=== PATIENT | male | born 1990 | race Caucasian/White ===

== ENCOUNTER 2020-03-02 02:39 | Emergency (ER) | payer OTHER, SELFPAY ==
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
[2020-03-02 02:49] VITALS: BP 118/72; PULSE 62; RESP 18; TEMP 36.8; O2SAT 100
[2020-03-02 03:05] LABS: Basophils Percent Auto 0.5 % (0.2-1.2); Eosinophils Absolute Auto 0.1 K/mm3 (0-0.3); Eosinophils Percent Auto 0.6 % (0-4.4); Hematocrit 44.4 % (42.0-52.0); Hemoglobin 14.7 g/dL (14.0-18.0); Immature Granulocyte Absolute 0.04 K/mm3 (0.00-0.031); Immature Granulocyte Percent A 0.5 % (0-0.5); Lymphocytes Absolute Auto 2.18 K/mm3 (0.9-3.2); Lymphocytes Percent Auto 26.8 % (18.3-44.2); Mean Corpuscular HGB Conc 33.1 g/dl (32-36); Mean Corpuscular Hemoglobin 31.7 pg (26-34); Mean Corpuscular Volume 95.7 fl (80-100); Monocytes Absolute Auto 0.4 K/mm3 (0.1-0.6); Monocytes Percent Auto 4.8 % (2.6-8.5); Neutrophils Absolute Auto 5.4 K/mm3 (1.3-6.7); Neutrophils Percent Auto 66.8 % (45.5-73.1); Platelet Count Result 239 k/mm3 (150-375); Red Blood Count 4.64 M/mm3 (4.6-6.20); Red Cell Distribution Width 12.9 % (11.5-14.5); White Blood Count 8.1 K/mm3 (4.5-10.0)
[2020-03-02 03:11] LABS: Add Urine Microscopic? YES; Appearance Urine Clear (Clear); Bilirubin Urine 1+ (Negative); Blood Urine Negative (Negative); Color Urine Yellow (Yellow); Glucose Urine UA Negative (Negative); Ketones Urine 1+ mg/dL (Negative); Leukocyte Esterase Ur 2+ LEU/UL (Negative); Mucus Urine Heavy /lpf; Nitrate Urine Negative (Negative); Protein Urine 1+ mg/dL (Negative); WBC Urine >75 /hpf
[2020-03-02 03:13] LABS: Specific Grav Ur 1.031 (1.001-1.035)
[2020-03-02 03:14] LABS: Alanine Aminotransferase 24 U/L (4-50); Albumin Level 4.5 g/dL (3.5-5.1); Alkaline Phosphatase 109 U/L (38-126); Anion Gap 9 mmol/L (8-16); Aspartate Amino Transferase 21 U/L (17-59); Blood Urea Nitrogen 10 mg/dL (9-20); Calcium 9.1 mg/dL (8.4-10.2); Carbon Dioxide 27 mmol/L (22-30); Chloride 104 mmol/L (98-107); Estimated CRCL calculation 129 ml/min; Estimated Glomerular Filt Rate > 60; Glucose 95 mg/dL (75-110); Sodium 140 mmol/L (137-145)
[2020-03-02 03:16] LABS: Ethanol < 10 mg/dL (<10)
[2020-03-02 03:20] LABS: Amphetamine Screen Urine Negative (Negative); Barbiturate Screen Urine Negative (Negative); Benzodiazepines Screen Urine Negative (Negative); Cannabinoid Screen Urine Positive (Negative); Cocaine Screen Urine Negative (Negative); Methadone Screen Urine Negative (Negative); Opiate Screen Urine Negative (Negative); Phencyclidine Screen Urine Negative (Negative)
[2020-03-02] MEDS: cefTRIAXone 250 MG VIAL IM (03:35)
[2020-03-02] MEDS: AZITHROMYCIN 250 MG TABLET 1000 MG PO (03:35)
[2020-03-02 03:45] LABS: Thyroid Stimulating Hormone 0.787 uIU/mL (0.465-4.680)
--- NOTE | 2020-03-02 04:32 | PC.NURSE ---
crisis called, phuc answered, will dispatch care personel to eval pt.
--- NOTE | 2020-03-02 04:59 | PC.NURSE ---
person from crisis here, talked with Dr. nair. veronika puckett
--- NOTE | 2020-03-02 05:58 | PC.NURSE ---
pts chart faxed to [facility] for placement.
--- NOTE | 2020-03-02 11:13 | PC.NURSE ---
requested paperwork faxed to [facility], and [facility]
[2020-03-02 11:17] VITALS: BP 132/60; PULSE 76; RESP 20; O2SAT 99
--- NOTE | 2020-03-02 12:10 | PC.NURSE ---
requested paperwork faxed to [facility]
[2020-03-02 20:37] VITALS: BP 134/60; PULSE 78; RESP 18; O2SAT 99
--- NOTE | 2020-03-02 20:37 | PC.NURSE ---
trent sanitation worker cleaning machinery here to reassess patient. patient has been declined by all facilities contacted
--- NOTE | 2020-03-02 21:02 | PC.NURSE ---
Lili from Crisis here, re evaluating to patient. She reports the patient wishes to be hospitalized
--- NOTE | 2020-03-02 21:22 | PC.NURSE ---
Lili called requesting a COVID swab to be collected. Dr. Rodriguez made aware. [facility] for COVID Swab.
--- NOTE | 2020-03-02 21:25 | PC.NURSE ---
Per heating and cooling techniciancatina Quiroz, pt cursing, hitting wall, wanting a nicotine patch.
--- NOTE | 2020-03-02 21:28 | PC.NURSE ---
Security at bedside, pt threatening to leave. Dr. Rodriguez made aware of pt request for nicotine patch. He states he will place order in. Pt made aware.
--- NOTE | 2020-03-02 21:52 | PC.NURSE ---
Security brought me an incident report . The guard reports the pt states he has tried to kill his self several times by od, train & other ways , also that he couldn't wait until the first of the month he was going to buy a gun and kill his self. This report was placed on the chart. Sitter at bedside, security talking with patient.
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
[2020-03-03] MEDS: NICOTINE (*PBKC) 14 MG PATCH 1 PATCH TRANSDERM (01:20)
[2020-03-03] MEDS: LORazepam 1 MG TABLET 2 MG PO (01:29)
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
[2020-03-03 02:04] VITALS: BP 126/79; PULSE 84; RESP 16; TEMP 36.6; O2SAT 100
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
--- NOTE | 2020-03-03 02:30 | PC.NURSE ---
Addendum entered by SERENA Mcdowell 03/03/20 02:51: Asked pt to watch his language, he refused after I told him other pt in the mann could hear him and stated he did not give a fuck. Original Note: Asked pt to watch his language, he refused after I told him other pt in the mann could hear him and stated he did not give a fuck.
--- NOTE | 2020-03-03 08:37 | PC.NURSE ---
Pt father Bao Gomez called for an update. Wishes to be called when pt gets placed. Phone number is [phone].
--- NOTE | 2020-03-03 08:43 | PC.NURSE ---
Lili from Crisis contacted at this time. Informed me that pt has been denied by 5 different hospitals. Lili states she will continue to look for placement.
[2020-03-03 12:19] VITALS: BP 122/72; PULSE 82; RESP 18; TEMP 36.6; O2SAT 100
--- NOTE | 2020-03-03 12:19 | PC.NURSE ---
Oni from [facility] called for nurse to nurse report. Oni states intake will be calling back with potentially accepting
[2020-03-03] MEDS: SERTRALINE HCL 50 MG TABLET 100 MG PO (13:35)
[2020-03-03] MEDS: LORazepam 1 MG TABLET PO ×2 (13:35→18:56)
[2020-03-03] MEDS: NICOTINE (*PBKC) 21 MG PATCH 1 PATCH TRANSDERM (13:53)
[2020-03-03 14:00] LABS: SARS-CoV-2 RNA PCR Negative
--- NOTE | 2020-03-03 14:40 | PC.NURSE ---
spoke with Jessica @ [phone] [facility]. stated they would hold bed-call with schedule time of departure. If bumped by transport service call [facility] with each updated scheduled
--- NOTE | 2020-03-03 19:20 | PC.NURSE ---
report received at this time. pt resting in room with no complaints. updated on poc and awaiting transfer, verbalizes understanding. sitter remains at bedside. will continue to monitor pt for baseline status changes.
--- NOTE | 2020-03-03 20:13 | PCDIET ---
Spoke with [facility]. No trip plan or ETA for transport to [place], yet.
--- NOTE | 2020-03-03 20:29 | PC.NURSE ---
[facility] called and the ETA for a dedicated crew to transport patient to [place] is 03/04/2020 at 2:30 and 3:00.
--- NOTE | 2020-03-03 20:39 | PC.NURSE ---
Informed [facility] with [facility] transport ETA to pickup patient from this ED
[2020-03-03 20:49] VITALS: BP 127/67; PULSE 73; RESP 18; TEMP 37.1; O2SAT 99
--- NOTE | 2020-03-03 22:01 | PC.NURSE ---
pt sleeping on floor at this time, sitter remains at bedside. RR even and unlabored, pt in NAD.
[2020-03-04] MEDS: NICOTINE (*PBKC) 14 MG PATCH 1 PATCH TRANSDERM (00:51)
[2020-03-04] MEDS: LORazepam 0.5 MG TABLET PO (00:51)
[2020-03-04 05:43] VITALS: BP 118/71; PULSE 58; RESP 17; TEMP 36.6; O2SAT 98
[2020-03-04 07:15] VITALS: BP 128/85; PULSE 84; RESP 17; TEMP 36.1; O2SAT 99
[2020-03-04] MEDS: LORazepam 1 MG TABLET PO (14:40)
[2020-03-04] MEDS: SERTRALINE HCL 50 MG TABLET 100 MG PO (14:50)
--- NOTE | 2020-03-04 15:09 | PC.NURSE ---
Patient transferred to [facility] at this time per [facility]. Father notified at [phone].
== END 2020-03-04 15:10 ==
PROVIDERS: Emergency Medicine; Emergency Provider General Practice; PCP Internal Medicine Infectious Disease
DX: R45.851 Suicidal ideations (principal); F32.9 Major depressive disorder, single episode, unspecified; F17.200 Nicotine dependence, unspecified, uncomplicated; Z11.59 Encounter for screening for other viral diseases
CPT/HCPCS: 36415; 80053; 80307; 81001; 84443; 85025; 87086; 87088; 87635; 96372; 99285; A9270; C9803; J0696; U0003

== ENCOUNTER 2020-11-21 00:33 | Emergency (ER) | payer OTHER, SELFPAY ==
[2020-11-21 00:46] VITALS: BP 132/91; PULSE 85; RESP 20; TEMP 36.9; O2SAT 100
--- NOTE | 2020-11-21 01:40 | ED.GENADULT ---
HPI - General Adult General Chief complaint: Psychiatric Symptoms Stated complaint: psych eval Time Seen by Provider: 11/21/20 01:39 Source: patient Mode of arrival: ambulatory Limitations: no limitations History of Present Illness HPI narrative: Patient is 30 years old white male brought to the emergency room by ambulance for possible psych evaluation. Patient is homeless, ran out of Ativan, talking fast but able to understand any verbal commands, denies any suicidal or homicidal ideation. Patient denies any fever, chills, nausea, vomiting Related Data Home Medications Medication Instructions Recorded Confirmed dextroamphetamine-amphetamine 15 mg PO TID 03/03/20 03/03/20 [Adderall] lorazepam [Ativan] 1 mg PO TID 03/03/20 03/03/20 prazosin 5 mg PO HS 03/03/20 03/03/20 pregabalin [Lyrica] 100 mg PO TID 03/03/20 sertraline [Zoloft] 100 mg PO DAILY 03/03/20 03/03/20 buspirone mg 11/21/20 Allergies Allergy/AdvReac Type Severity Reaction Status Date / Time Penicillins Allergy Unknown Rash Verified 11/21/20 02:05 Review of Systems Review of Systems: Narrative: CONSTITUTIONAL: Denies fever, chills, or sweats. EYES: Denies visual changes, redness, or discharge. ENT: Denies rhinorrhea, congestion, sore throat, or otalgia. CARDIOVASCULAR: Denies chest pain, palpitations, or edema. RESPIRATORY: Denies cough or dyspnea. GASTROINTESTINAL: Denies abdominal pain, nausea, vomiting, or diarrhea. GENITOURINARY: Denies dysuria or hematuria. SKIN: Denies rash or itching. MUSCULOSKELETAL: Denies back pain, joint pain, or myalgia. NEUROLOGIC: Denies headache, numbness, or weakness. PSYCHIATRIC: Denies anxiety or depression. PMFSH Past Medical History Medical History Depression Social History Social History Smoking status: Current every day smoker Substance use type: does not use Exam Narrative: Exam Narrative: General appearance: Well-developed, well-nourished, very polite, speaks fast, able to follow my verbal commands and easy to be redirected. Skin: Normal color Head: Normocephalic, nontraumatic Eyes: Clear conjunctiva ENT: Oropharynx normal, ears normal, nose normal Neck: Supple, nontender Chest and respiratory: Airway patent, no respiratory distress, no accessory muscle use Heart: Regular rate/rhythm Abdomen: Soft, nontender, no organomegaly, quiet bowel sounds Vascular: Normal peripheral pulses, normal capillary refill. Musculoskeletal: Normal range of motion, nontender back Neurologic: Alert and oriented ?3, BOOTH MANAGER is normal as tested, no gross motor deficit Course Course Emergency Course: Stable Reevaluation(s) Reevaluation #1: Patient feeling much better, asking me that his mom is coming to pick him up. Currently patient is asymptomatic talking at normal speed without aliyah Date: 11/21/20 Time: 06:06 Vital Signs Vital signs: Vital Signs Temperature 36.9 C 11/21/20 00:46 Pulse Rate 85 11/21/20 00:46 Respiratory Rate 20 11/21/20 00:46 Blood Pressure 132/91 H 11/21/20 00:46 Pulse Oximetry 100 11/21/20 00:46 Temperature 36.9 C 11/21/20 00:46 Pulse Rate 85 11/21/20 00:46 Respiratory Rate 20 11/21/20 00:46 Blood Pressure 132/91 H 11/21/20 00:46 Pulse Oximetry 100 11/21/20 00:46 Medical Decision Making [facility] Narrative Medical decision making narrative: My plan to give him 1 mg of Ativan, watching for the next 20 minutes then discharge. Differential Diagnosis Differential Diagnosis: Aliyah, anxiety, depression Vital Signs Vital Signs: Vital Signs Temperature 36.9 C 11/21/20 00:46 Pulse R
[2020-11-21] MEDS: LORazepam (*CRX) 0.5 MG TABLET 1 MG PO (02:03)
[2020-11-21 06:14] VITALS: BP 100/52; PULSE 114; RESP 18; TEMP 36.5; O2SAT 100
== END 2020-11-21 06:14 | disposition home or self-care (01) ==
PROVIDERS: Emergency Provider Emergency Medicine; PCP Internal Medicine Infectious Disease
DX: F41.9 Anxiety disorder, unspecified (principal); F32.9 Major depressive disorder, single episode, unspecified
CPT/HCPCS: 99283; A9270